=== PATIENT | female | born 1975 | race Two or more races ===

== ENCOUNTER 2021-05-19 20:01 | Emergency (ER) | payer SELFPAY ==
[~2021-05-19] VITALS: Ht 162.6 cm; Wt 83.0 kg
[2021-05-19 21:21] LABS: BASOPHILS % 0.5 % (0.0-2.0); EOSINOPHILS % 1.3 % (0.0-5.0); HEMATOCRIT. 29.8 % (36.0-48.0); HEMOGLOBIN. 9.6 g/dL (12.0-16.0); LYMPHOCYTES % 15.4 % (20.0-50.0); MEAN CORPUSCULAR HEMOGLOBIN 22.7 pg (28.0-32.0); MEAN CORPUSCULAR VOLUME 70.4 fL (81.0-99.0); MEAN PLATELET VOLUME 8.5 fl (7.4-10.4); MONOCYTES % 8.2 % (2.0-8.0); NEUTROPHILS % 74.6 % (40.0-76.0); PLATELET 189 x1000/uL (130-400); RED BLOOD CELL COUNT 4.23 mill/uL (4.2-5.4); RED CELL DISTRIBUTION WIDTH 16.3 % (11.6-14.6)
[2021-05-19 21:28] LABS: CLARITY URINE CLOUDY (CLEAR); COLOR URINE YELLOW (YELLOW); KETONES URINE NEGATIVE (NEGATIVE); LEUKOCYTE ESTERASE URINE 3+ (NEGATIVE); NITRITE URINE NEGATIVE (NEGATIVE); OCCULT BLOOD URINE 2+ (NEGATIVE); PROTEIN URINE TRACE (NEGATIVE); SPECIFIC GRAVITY URINE 1.012 (1.005-1.030)
[2021-05-19 21:29] LABS: CHLORIDE 111 mEq/L (98-107)
[2021-05-19 21:30] LABS: PROTHROMBIN TIME 10.5 sec (9.6-11.0)
[2021-05-19] MEDS ORDERED: CEFTRIAXONE 1 G PREMIX 50 ML IV ONE (22:30)
[2021-05-19] MEDS ORDERED: CEPH500T MT (23:44)
[2021-05-20 00:02] VITALS: BP 126/72
== END 2021-05-20 00:11 | disposition home or self-care (01) ==
LOC: ER 20:01 → CANBEDREQ 05-20 01:37
DX: N12 Tubulo-interstitial nephritis, not specified as acute or chronic (principal)
CPT/HCPCS: 36415; 71045; 80053; 81003; 81025; 83605; 84145; 84484; 85025; 85610; 87040; 87086; 93005; 96374; 99285; J0696

== ENCOUNTER 2022-12-15 16:27 | Emergency (ER) | payer MEDICAID, OTHER ==
[~2022-12-15] VITALS: Ht 165.1 cm; Wt 75.0 kg
[~2022-12-15 16:27] MED LIST: CEPH500T MT
[2022-12-15 16:37] VITALS: BP 175/93
== END 2022-12-15 21:15 | disposition left against medical advice (07) ==
LOC: ER 16:36
DX: R10.9 Unspecified abdominal pain (principal); Z53.21 Procedure and treatment not carried out due to patient leaving prior to being seen by health care provider
CPT/HCPCS: 99281

== ENCOUNTER 2025-08-27 04:24 | Emergency (ER) | payer MEDICAID ==
[~2025-08-27] VITALS: Ht 167.6 cm; Wt 82.0 kg
[2025-08-27 04:43] VITALS: O2SAT 100
[2025-08-27 05:09] LABS: CLARITY URINE CLOUDY (CLEAR); COLOR URINE YELLOW (YELLOW); GLUCOSE URINE NEGATIVE (NEGATIVE); KETONES URINE NEGATIVE (NEGATIVE); LEUKOCYTE ESTERASE URINE 3+ (NEGATIVE); NITRITE URINE NEGATIVE (NEGATIVE); OCCULT BLOOD URINE 1+ (NEGATIVE); PH URINE 8.0 (4.5-8.0); PROTEIN URINE NEGATIVE (NEGATIVE); SPECIFIC GRAVITY URINE 1.008 (1.005-1.030); UROBILINOGEN URINE 0.2 E.U./dL (0.2-1.0)
[2025-08-27 05:11] LABS: BASOPHILS % 0.5 % (0.0-2.0); EOSINOPHILS % 0.8 % (0.0-5.0); HEMATOCRIT. 41.9 % (36.0-48.0); HEMOGLOBIN. 13.7 g/dL (12.0-16.0); LYMPHOCYTES % 22.1 % (20.0-50.0); MEAN PLATELET VOLUME 8.0 fl (7.4-10.4); MONOCYTES % 4.1 % (2.0-8.0); NEUTROPHILS % 72.5 % (40.0-76.0); PLATELET 171 x1000/uL (130-400); RED BLOOD CELL COUNT 5.13 mill/uL (4.2-5.4); RED CELL DISTRIBUTION WIDTH 13.7 % (11.6-14.6)
[2025-08-27 05:31] LABS: CREATININE 0.7 mg/dL (0.6-1.0); UREA NITROGEN BLOOD 7 mg/dL (9-23)
[2025-08-27 05:49] LABS: AMORPHOUS SEDIMENT URINE 2+ /lpf; BACTERIA URINE 1+; SQUAMOUS EPITHELIAL CELL URINE NONE SEEN /lpf (RARE/1+); WBC URINE 15-25 /hpf (0-2)
[2025-08-27] MEDS: ACETAMINOPHEN 325MG TABLET PO ONE (06:12)
[2025-08-27] MEDS ORDERED: PHEN-815 PO (06:16)
[2025-08-27] MEDS ORDERED: TOPUD PO (06:16)
[2025-08-27] MEDS ORDERED: NITR100C PO (06:16)
[2025-08-27] MEDS: IBUPROFEN 800MG TABLET PO ONE (06:50)
[2025-08-27 07:17] VITALS: BP 158/74; PULSE 63; RESP 16; TEMP 36.9; O2SAT 100
== END 2025-08-27 07:17 | disposition home or self-care (01) ==
LOC: EDBD 04:24 → ER 04:24
DX: N39.0 Urinary tract infection, site not specified (principal)
CPT/HCPCS: 36415; 80048; 81003; 81025; 85025; 87077; 87186; 99283